=== PATIENT | female | born 1985 | race Caucasian/White ===

== ENCOUNTER 2018-10-16 12:58 | Emergency (ER) | payer BC ==
[~2018-10-16] VITALS: Ht 182.9 cm; Wt 104.3 kg
[~2018-10-16 12:58] MED LIST: [UNRECOGNIZED DRUG - OTHER]; [UNRECOGNIZED DRUG - OTHER]
[2018-10-16] MEDS ORDERED: NS IV 1000 ML 1,000 ML IV SCH (13:30)
[2018-10-16 13:38] LABS: BASOPHILS % (AUTO) 1 % (0-10); EOSINOPHILS # (AUTO) 0.2 10^3/uL (0.0-0.3); EOSINOPHILS % (AUTO) 4 % (0-10); HEMATOCRIT 40 % (35-52); HEMOGLOBIN 13.4 G/DL (11.5-16.0); LYMPHOCYTES # (AUTO) 1.9 X 10^3 (1.0-4.0); LYMPHOCYTES % (AUTO) 30 % (12-44); MEAN CORPUSCULAR HEMOGLOBIN 29 PG (25-34); MEAN CORPUSCULAR HGB CONC 34 G/DL (32-36); MEAN CORPUSCULAR VOLUME 86 FL (80-99); MONOCYTES # (AUTO) 0.5 X 10^3 (0.0-1.0); MONOCYTES % (AUTO) 7 % (0-12); NEUTROPHILS # (AUTO) 3.7 X 10^3 (1.8-7.8); NEUTROPHILS % (AUTO) 59 % (42-75); PLATELET COUNT 248 10^3/uL (130-400); RED CELL DISTRIBUTION WIDTH 15.2 % (10.0-14.5); WHITE BLOOD COUNT 6.3 10^3/uL (4.3-11.0)
--- NOTE | 2018-10-16 13:42 | ED Syncope ---
General Chief Complaint: Dizziness/Syncope Stated Complaint: LOSS OF CONSCIOUSNESS Nursing Triage Note: Pt to ED with coworker. Pt reports "loss of consciousness" while eating lunch today. Pt reports being in an abnormally hot room while eating. Pt took a drink of a carbonated beverage, felt a large air bubble and then reports not remembering anything for the next 10-15 seconds. Pt reports feeling well now, but reports feeling tired and uncertain. Source of Information: Patient Exam Limitations: No Limitations History of Present Illness Date Seen by Provider: October 16, 2018 Time Seen by Provider: 13:25 Initial Comments 32-year-old female who was brought to the emergency room by a coworker with reports of her passing out while eating lunch today. She reports that they were eating in and abnormally hot room when she took a drink of her carbonated beverage and just slumped down to the chair. She is alert and oriented on arrival to the emergency room and has no complaints. Bystanders report that she did not sees or having a period of postictal. She denies ever having anything like this before. Timing/Prior Episodes: No Prior History Symptoms Prior to Episode: None Loss of Consciousness: Brief (Seconds) (15 seconds) Current Symptoms: Back to Normal Allergies and Home Medications Allergies Coded Allergies: No Known Drug Allergies (Unverified , 10/02/11) Patient Home Medication List Home Medication List Reviewed: Yes Review of Systems Constitutional: see HPI; No chills, No fever Cardiovascular: syncope All Other Systems Reviewed Negative Unless Noted: Yes Past Hrdamod-Gqupco-Gnybuq Hx Past Med/Social Hx: Reviewed Nursing Past Med/Soc Hx Patient Social History Recent Foreign Travel: No Contact w/Someone Who Travel: No Recent Infectious Disease Expo: No Recent Hopitalizations: Yes (had baby 06/21) Physical Abuse: No Sexual Abuse: No Mistreated: No Fear: No Seasonal Allergies Seasonal Allergies: No Past Medical History Surgeries: No Respiratory: No Cardiac: No Neurological: No Genitourinary: No Gastrointestinal: No Musculoskeletal: No Endocrine: No HEENT: No Cancer: No Psychosocial: No Integumentary: No Blood Disorders: No Adverse Reaction/Blood Tranf: No Family Medical History Reviewed Nursing Family Hx Physical Exam Vital Signs Vital Signs - First Documented 10/16/18 13:13 Temp 97.3 Pulse 66 Resp 16 B/P (MAP) 109/95 (100) Pulse Ox 99 O2 Delivery Room Air Capillary Refill : Less Than 3 Seconds Height, Weight, BMI Height: 6'0" Weight: 230lbs. oz. 104.391423kh; BMI Method:Stated General Appearance: No Apparent Distress, WD/WN HEENT: PERRL/EOMI, TMs Normal, Normal ENT Inspection, Pharynx Normal Neck: Full Range of Motion, Normal Inspection, Non Tender, Supple Cardiovascular: Regular Rate, Rhythm, No Edema, No Gallop, No JVD, No Murmur, Normal Peripheral Pulses Respiratory: Chest Non Tender, Lungs Clear, Normal Breath Sounds, No Accessory Muscle Use, No Respiratory Distress Gastrointestinal: Normal Bowel Sounds, No Organomegaly, No Pulsatile Mass, Non Tender, Soft Extremities: Normal Capillary Refill Neurologic/Psychiatric: Alert, Oriented x3, No Motor/Sensory Deficits Cranial Nerves: Normal Hearing, Normal Speech, PERRL Coordination/Gait: Normal Finger to Nose, Normal Gait Skin: Normal Color, Warm/Dry Progress/Results/Core Measures Results/Orders Lab Results Laboratory Tests Test 10/16/18 13:29 10/16/18 13:33 Range/Units White Blood Count 6.3 4.3-11.0 10^3/uL Red Blood Count 4.57 4.35-5.85 10^6/uL Hemoglobin 13.4 11.5-16.0 G/DL Hematocrit 40 35-52 % Mean Corpuscular Volume 86 80-99 FL Mean Corpuscular Hemoglobin 29 25-34 PG Mean Corpuscular Hemoglobin Concent 34 32-36 G/DL Red Cell Distribution Width 15.2 H 10.0-14.5 % Platelet Count 248 130-400 10^3/uL Mean Platelet Volume 10.0 7.4-10.4 FL Neutrophils (%) (Auto) 59 42-75 % Lymphocytes (%) (Auto) 30 12-44 % Monocytes (%) (Auto) 7 0-12 % Eosinophils (%) (Auto) 4 0-10 % Basophils (%) (Auto) 1 0-10 % Neutrophils # (Auto) 3.7 1.8-7.8 X 10^3 Lymphocytes # (Auto) 1.9 1.0-4.0 X 10^3 Monocytes # (Auto) 0.5 0.0-1.0 X 10^3 Eosinophils # (Auto) 0.2 0.0-0.3 10^3/uL Basophils # (Auto) 0.0 0.0-0.1 10^3/uL Sodium Level 141 135-145 MMOL/L Potassium Level 4.0 3.6-5.0 MMOL/L Chloride Level 107 98-107 MMOL/L Carbon Dioxide Level 23 21-32 MMOL/L Anion Gap 11 5-14 MMOL/L Blood Urea Nitrogen 17 7-18 MG/DL Creatinine 0.85 0.60-1.30 MG/DL Estimat Glomerular Filtration Rate > 60 BUN/Creatinine Ratio 20 Glucose Level 118 H 70-105 MG/DL Calcium Level 10.1 8.5-10.1 MG/DL Corrected Calcium 8.5-10.1 MG/DL Total Bilirubin 0.3 0.1-1.0 MG/DL Aspartate Amino Transf (AST/SGOT) 16 5-34 U/L Alanine Aminotransferase (ALT/SGPT) 19 0-55 U/L Alkaline Phosphatase 67 40-136 U/L Total Protein 8.0 6.4-8.2 GM/DL Albumin 4.8 H 3.2-4.5 GM/DL Serum Test, Qualitative NEGATIVE NEGATIVE Urine Color YELLOW Urine Clarity CLEAR Urine pH 6.5 5-9 Urine Specific [place] 1.010 L 1.016-1.022 Urine Protein NEGATIVE NEGATIVE Urine Glucose (UA) NEGATIVE NEGATIVE Urine Ketones NEGATIVE NEGATIVE Urine Nitrite NEGATIVE NEGATIVE Urine Bilirubin NEGATIVE NEGATIVE Urine Urobilinogen NORMAL NORMAL MG/DL Urine Leukocyte Esterase NEGATIVE NEGATIVE Urine RBC (Auto) NEGATIVE NEGATIVE Urine RBC NONE /HPF Urine WBC NONE /HPF Urine Squamous Epithelial Cells 0-2 /HPF Urine Crystals NONE /LPF Urine Bacteria NEGATIVE /HPF Urine Casts NONE /LPF Urine Mucus NEGATIVE /LPF Urine Culture Indicated NO My Orders Orders - ALYCIA SALAZAR Comprehensive Metabolic Panel (10/16/18 13:25) Ua Culture If Indicated (10/16/18 13:25) Hcg,Qualitative Serum (10/16/18 13:25) Ed Iv/Invasive Line Start (10/16/18 13:25) Cbc With Automated Diff (10/16/18 13:25) Ekg Tracing (10/16/18 13:25) Ns Iv 1000 Ml (Sodium Chloride 0.9%) (10/16/18 13:30) Vital Signs/I&O 10/16/18 10/16/18 13:13 14:33 Temp 97.3 97.6 Pulse 66 62 Resp 16 18 B/P (MAP) 109/95 (100) 105/53 (70) Pulse Ox 99 99 O2 Delivery Room Air Room Air Blood Pressure Mean: 100 Progress Progress Note : Time: 14:00 Progress Note I have seen and evaluated the patient. I have informed her of her laboratory studies. Her EKG revealed no cardiac abnormalities. She has remained symptom free since arrival to the emergency room. She agrees with plan of care, plans for discharge, return precautions were given. Departure Impression Primary Impression: Syncopal episodes Disposition: 01 HOME, SELF-CARE Condition: Stable/Unchanged Departure-Patient Inst. Decision time for Depature: 14:08 Referrals: LARRY SOLARES DO (PCP/Family) Primary Care Physician Patient Instructions: Syncope (Fainting) (DC) Add. Discharge Instructions: Drink plenty fluids to stay hydrated throughout the day. Follow-up with your primary care provider as needed. Return back to the emergency room for worsening symptoms or concerns as needed. All discharge instructions reviewed with patient and/or family. Voiced understanding. ALYCIA SALAZAR October 16, 2018 13:42
[2018-10-16 13:43] LABS: BILIRUBIN,URINE NEGATIVE (NEGATIVE); CLARITY,URINE CLEAR; COLOR,URINE YELLOW; GLUCOSE, URINE (UA) NEGATIVE (NEGATIVE); KETONES,URINE NEGATIVE (NEGATIVE); LEUKOCYTE ESTERASE ,URINE NEGATIVE (NEGATIVE); NITRITE,URINE NEGATIVE (NEGATIVE); PH,URINE 6.5 (5-9); PROTEIN,URINE NEGATIVE (NEGATIVE); UROBILINOGEN,URINE NORMAL (NORMAL)
[2018-10-16 13:59] LABS: ALANINE AMINOTRANSFERASE 19 U/L (0-55); ALBUMIN 4.8 GM/DL (3.2-4.5); ALKALINE PHOSPHATASE 67 U/L (40-136); BILIRUBIN,TOTAL 0.3 MG/DL (0.1-1.0); BUN/CREATININE RATIO 20; CALCIUM 10.1 MG/DL (8.5-10.1); CARBON DIOXIDE 23 MMOL/L (21-32); CHLORIDE 107 MMOL/L (98-107); CREATININE SERUM 0.85 MG/DL (0.60-1.30); GFR ESTIMATED > 60; GLUCOSE 118 MG/DL (70-105); SODIUM 141 MMOL/L (135-145)
[2018-10-16 14:03] LABS: BACTERIA,URINE NEGATIVE /HPF; SQUAMOUS EPITHELIAL CELL,UR 0-2 /HPF
[2018-10-16 14:33] VITALS: BP 105/53
== END 2018-10-16 14:30 | disposition home or self-care (01) ==
LOC: EDUNIT# 12:58 → ER 12:59
DX: R55 Syncope and collapse (principal)
CPT/HCPCS: 36415; 80053; 81000; 84703; 85025

== ENCOUNTER → 2020-04-19 | Outpatient (CLI) | payer BC ==
[2020-04-19 08:18] LABS: BASOPHILS % (AUTO) 1 % (0-10); EOSINOPHILS % (AUTO) 1 % (0-10); HEMATOCRIT 42 % (35-52); HEMOGLOBIN 13.8 g/dL (11.5-16.0); LYMPHOCYTES # (AUTO) 1.3 10^3/uL (1.0-4.0); LYMPHOCYTES % (AUTO) 35 % (12-44); MEAN CORPUSCULAR HEMOGLOBIN 30 pg (25-34); MEAN CORPUSCULAR HGB CONC 33 g/dL (32-36); MEAN CORPUSCULAR VOLUME 91 fL (80-99); MEAN PLATELET VOLUME 10.2 fL (9.0-12.2); MONOCYTES # (AUTO) 0.3 10^3/uL (0.0-1.0); MONOCYTES % (AUTO) 9 % (0-12); NEUTROPHILS # (AUTO) 1.9 10^3/uL (1.8-7.8); NEUTROPHILS % (AUTO) 54 % (42-75); PLATELET COUNT 146 10^3/uL (130-400); WHITE BLOOD COUNT 3.6 10^3/uL (4.3-11.0)
[2020-04-19 08:31] LABS: ALBUMIN 4.5 GM/DL (3.2-4.5); POTASSIUM 3.6 MMOL/L (3.6-5.0)
[2020-04-19 08:32] LABS: CALCIUM 8.6 MG/DL (8.5-10.1)
[2020-04-19 08:34] LABS: TOTAL PROTEIN 7.9 GM/DL (6.4-8.2)
[2020-04-19 08:35] LABS: BILIRUBIN,TOTAL 0.8 MG/DL (0.1-1.0)
[2020-04-19 08:37] LABS: CREATININE SERUM 1.07 MG/DL (0.60-1.30)
--- NOTE | 2020-04-19 18:52 | NUR ---
NOtified of positive COVID test.
== END ==
LOC: LABNPT 05:45
PROVIDERS: ATTEND Internal Medicine
DX: U07.1 COVID-19 (principal)
CPT/HCPCS: 80053; 85025; 86141; U0002; 87635

== ENCOUNTER → 2020-05-06 | Outpatient (CLI) | payer BC ==
--- NOTE | 2020-05-06 11:17 | Diagnostic Imaging Report ---
INDICATION: WORSENING COUGH, COVID+ TEST ON 04/19/20. TECHNIQUE: Two view chest 10:47 AM CORRELATION STUDY: 10/02/2011 FINDINGS: The heart size, mediastinal configuration and pulmonary vasculature are within normal limits. The lungs are clear with no consolidating infiltrate. There is no significant pleural effusion or pneumothorax. Visualized osseous structures are unremarkable. IMPRESSION: 1. Negative for acute abnormality of the chest. Dictated by: Dictated on workstation # [id number]
== END ==
LOC: RAD 10:15
PROVIDERS: ATTEND Physician Assistant
DX: U07.1 COVID-19 (principal)
CPT/HCPCS: 71046

== ENCOUNTER → 2020-08-10 | Outpatient (CLI) | payer BC ==
--- NOTE | 2020-08-10 17:10 | Diagnostic Imaging Report ---
INDICATION: Back pain. COMPARISON: CT abdomen and pelvis dated 01/18/2015. EXAMINATION: Frontal and lateral radiographic views of the lumbar spine were obtained. FINDINGS: Static alignment is preserved. Vertebral body heights are maintained. There is no acute fracture. There is mild intervertebral disc height loss isolated at the L4-L5 level. Note is also made of mild multilevel facet arthropathy of the lower lumbar spine. Included small bowel loops are nondistended. Note is made of multiple gallstones and indwelling intrauterine contraceptive device. IMPRESSION: 1. Mild degenerative changes of the lower lumbar spine, as described above. May want to consider correlation with MRI. 2. No acute fracture or dislocation. 3. Cholelithiasis. Dictated by: Dictated on workstation # [id number]
== END ==
LOC: RAD 15:13
PROVIDERS: ATTEND Physician Assistant
DX: M47.816 Spondylosis without myelopathy or radiculopathy, lumbar region (principal); K80.20 Calculus of gallbladder without cholecystitis without obstruction; M51.36 Other intervertebral disc degeneration, lumbar region
CPT/HCPCS: 72100

== ENCOUNTER → 2020-08-19 | Outpatient (CLI) | payer BC ==
--- NOTE | 2020-08-19 17:09 | Diagnostic Imaging Report ---
PROCEDURE: MRI lumbar spine. TECHNIQUE: Multiplanar, multisequence MRI of the lumbar spine was performed without contrast. INDICATION: Left leg pain, back pain, and lumbar radiculopathy CORRELATED with plain films lumbar 08/10/2020. No prior MR findings. FINDINGS: The lumbar vertebral statures are stable. The alignment stable and anatomic. Marrow signal intensity unremarkable. Conus appeared normal. No intrathecal abnormality. Abnormalities isolated to the L4-L5 level with is disc stature loss, disc desiccation and a broad-based left paramedian disc protrusion indenting the ventral thecal sac with a moderate severity of canal stenosis as well as [id number] impingement upon the left lateral recess and mild narrowing of the left neural foramen. The right neural foramen also has mild stenosis The L3-L4 disc showed mild stature loss desiccation and mild circumferential annular bulge but no focal herniation and no resultant stenosis. Remaining levels unremarkable. IMPRESSION: 1. Disc protrusion and desiccation L4-L5 with central canal, left lateral recess and left greater than right foraminal stenosis. 2. Normal alignment, no acute bony pathology. Dictated by: Dictated on workstation # [id number]
== END ==
LOC: RAD 15:30
PROVIDERS: ATTEND Physician Assistant
DX: M51.16 Intervertebral disc disorders with radiculopathy, lumbar region (principal); M48.061 Spinal stenosis, lumbar region without neurogenic claudication
CPT/HCPCS: 72148

== ENCOUNTER → 2021-04-20 | Outpatient (CLI) | payer BC ==
--- NOTE | 2021-04-20 09:05 | Diagnostic Imaging Report ---
INDICATION: PAIN RIGHT WRIST and HAND TECHNIQUE: Three views of the right hand. CORRELATION STUDY: None FINDINGS: There is normal alignment and appearance of the osseous structures of the hand. The joint spaces are maintained. There is no acute fracture. Soft tissues are unremarkable. IMPRESSION: 1. Negative for acute bony abnormality of the right hand. Dictated by: Dictated on workstation # [id number]
--- NOTE | 2021-04-20 09:10 | Diagnostic Imaging Report ---
INDICATION: Right wrist pain. FINDINGS: 3 views. There are no fractures or dislocation. Articulating surfaces are smooth. Joint spaces are well maintained. No evidence of osteonecrosis. No fracture. IMPRESSION: Negative right wrist Dictated by: Dictated on workstation # [id number]
== END ==
LOC: RAD 08:29
PROVIDERS: ATTEND Internal Medicine
DX: M25.531 Pain in right wrist (principal); M79.641 Pain in right hand
CPT/HCPCS: 73110; 73130

== ENCOUNTER → 2021-11-01 | Outpatient (CLI) | payer BC, OTHER ==
--- NOTE | 2021-11-01 16:48 | Diagnostic Imaging Report ---
INDICATION: Neck pain. TIME OF EXAM: 3:36 PM. EXAMINATION: AP, lateral and odontoid views of the cervical spine were obtained. Curvature and alignment is normal. Vertebral body heights and disc spaces are well-maintained. The prevertebral tissues are normal. Odontoid appears intact. No fractures are seen. IMPRESSION: No acute bony abnormality is detected. Dictated by: Dictated on workstation # [id number]
== END ==
LOC: RAD 15:12
PROVIDERS: ATTEND Physician Assistant
DX: M54.12 Radiculopathy, cervical region (principal); R94.31 Abnormal electrocardiogram [ECG] [EKG]
CPT/HCPCS: 72040

== ENCOUNTER → 2021-11-14 | Outpatient (CLI) | payer OTHER ==
--- NOTE | 2021-11-14 09:54 | Diagnostic Imaging Report ---
PROCEDURE: MR imaging cervical spine without contrast. TECHNIQUE: Multiplanar, multisequence MR imaging of the cervical spine was performed without contrast. INDICATION: Bilateral hand numbness. Neck pain. COMPARISON: 11/01/2021. FINDINGS: No acute fracture or dislocation is seen in the cervical spine. There is reversal of the normal lordotic curvature of the cervical spine centered at the C4-C5 level. The vertebral body heights and disc spaces are well maintained. The bone marrow signal is unremarkable. No focal osseous lesions. The craniocervical junction is maintained. The cervical spinal cord demonstrates normal intrinsic signal. No epidural collections are seen. The included brainstem and posterior fossa have normal appearance. Degenerative changes are as follows: C2-C3: No significant spinal canal or foraminal stenosis. C3-C4: No significant spinal canal or foraminal stenosis. C4-C5: Posterior disc bulge and uncovertebral arthropathy results in no significant spinal canal narrowing and no significant foraminal narrowing. C5-C6: Posterior disc bulge and uncovertebral arthropathy results in no significant spinal canal narrowing and no significant foraminal narrowing. C6-C7: No significant spinal canal or foraminal stenosis. C7-T1: No significant spinal canal or foraminal stenosis. The soft tissues of neck are unremarkable. IMPRESSION: 1. No acute fracture or dislocation of the cervical spine. 2. Mild multilevel degenerative changes in the cervical spine, greatest at C4-C5 and C5-C6. No significant spinal canal or foraminal stenosis in the cervical spine. Dictated by: Dictated on workstation # [id number]
== END ==
LOC: RAD 08:48
PROVIDERS: ATTEND Physician Assistant
DX: M47.22 Other spondylosis with radiculopathy, cervical region (principal); R94.31 Abnormal electrocardiogram [ECG] [EKG]
CPT/HCPCS: 72141

== ENCOUNTER 2021-12-27 13:33 | Emergency (ER) | payer OTHER ==
[~2021-12-27] VITALS: Ht 182 cm; Wt 104.0 kg
[2021-12-27] MEDS ORDERED: DICYCLOMINE 10 MG/ML (BENTYL) 2 ML AMP IM STA (14:53)
--- NOTE | 2021-12-27 14:55 | ED Abdominal Pain ---
General Chief Complaint: Abdominal/GI Problems Stated Complaint: ABD PAIN,DIZZINESS,NAUSEA Nursing Triage Note: PT COMPLAINS OF EPIGASTRIC PAIN ALONG WITH NAUSEA AND DIARRHEA STARTING THIS AM. Source of Information: Patient Exam Limitations: No Limitations History of Present Illness Date Seen by Provider: Dec 27, 2021 Time Seen by Provider: 14:44 Initial Comments Patient is a 36-year-old female who presents to the emergency department with a chief complaint of epigastric pain nausea and diarrhea onset early this morning. Patient states that the pain comes in "waves". She states it seems to spread from the epigastric region and across her abdomen. She has been very nauseous. No actual vomiting. She denies any sick contacts at home. Her has eaten the same thing she has in recent days and he is not sick. She denies fevers or chills. No cough, shortness of breath, URI symptoms. No COVID concerns. She is scheduled to go out of the country on Saturday to [place] for 7 days. She has never had any abdominal surgeries. She has had several successful pregnancies. She currently has an IUD. No dysuria, urgency or frequency. No black or bloody stools. She does mention on previous evaluation of degenerative disc disease in her back with an MRI that it was noted she had gallstones, multiple in her gallbladder. Patient is having a difficult time quantifying her pain. She does state may be a "6 or 7". But again this is intermittent. She has not taken anything for the pain. All other review of systems reviewed and negative except as stated. Timing/Duration: 4-6 Hours Severity/Quality: Moderate, Aching Location: RUQ, Epigastric Radiation: No Radiation Activities at Onset: Sleeping Associated Symptoms: Nausea/Vomiting (nausea without vomiting), Other (diarrhea) Allergies and Home Medications Allergies Coded Allergies: No Known Drug Allergies (Unverified , 10/02/11) Patient Home Medication List Home Medication List Reviewed: Yes Dicyclomine HCl (Dicyclomine HCl) 20 Mg Tablet, 20 MG PO Q6H PRN for abdominal pain Prescribed by: TERRANCE OLIVA on 12/27/21 163 Ondansetron (Ondansetron Odt) 4 Mg Tab.rapdis, 4 MG PO Q8H PRN for nausea Prescribed by: TERRANCE OLIVA on 12/27/21 1631 [Allgera D] , (Reported) Entered as Reported by: ELIECRE ANGEL on 10/02/11 09 [Vitaman] , (Reported) Entered as Reported by: ELIECER ANGEL on 10/02/1139 Review of Systems Review of Systems Constitutional: see HPI EENTM: No Symptoms Reported Respiratory: No Symptoms Reported Cardiovascular: No Symptoms Reported Gastrointestinal: Abdominal Pain, Diarrhea, Nausea Genitourinary: No Symptoms Reported Musculoskeletal: no symptoms reported Skin: no symptoms reported All Other Systems Reviewed Negative Unless Noted: Yes Past Ptpubea-Rjgeep-Ooqqix Hx Patient Social History Tobacco Use?: No Substance use?: No Alcohol Use?: No Immunizations Up To Date 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 oz. 104.297488kt; 31.00 BMI Method:Stated General Appearance: WD/WN, mild distress HEENT: PERRL/EOMI Respiratory: lungs clear, normal breath sounds, no respiratory distress, no accessory muscle use Cardiovascular: regular rate, rhythm Gastrointestinal: soft, tenderness (epigastric/RUQ (equivocal randhawa's)) Extremities: non-tender, normal inspection, no pedal edema, no calf tenderness Neurologic/Psychiatric: alert, normal mood/affect, oriented x 3 Skin: normal color, warm/dry Progress/Results/Core Measures Results/Orders Lab Results Laboratory Tests Test 12/27/21 14:45 Range/Units White Blood Count 10.1 4.3-11.0 10^3/uL Red Blood Count 4.95 3.80-5.11 10^6/uL Hemoglobin 15.0 11.5-16.0 g/dL Hematocrit 44 35-52 % Mean Corpuscular Volume 89 80-99 fL Mean Corpuscular Hemoglobin 30 25-34 pg Mean Corpuscular Hemoglobin Concent 34 32-36 g/dL Red Cell Distribution Width 12.3 10.0-14.5 % Platelet Count 240 130-400 10^3/uL Mean Platelet Volume 10.2 9.0-12.2 fL Immature Granulocyte % (Auto) 0 % Neutrophils (%) (Auto) 83 H 42-75 % Lymphocytes (%) (Auto) 9 L 12-44 % Monocytes (%) (Auto) 6 0-12 % Eosinophils (%) (Auto) 1 0-10 % Basophils (%) (Auto) 0 0-10 % Neutrophils # (Auto) 8.4 H 1.8-7.8 10^3/uL Lymphocytes # (Auto) 0.9 L 1.0-4.0 10^3/uL Monocytes # (Auto) 0.6 0.0-1.0 10^3/uL Eosinophils # (Auto) 0.1 0.0-0.3 10^3/uL Basophils # (Auto) 0.0 0.0-0.1 10^3/uL Immature Granulocyte # (Auto) 0.0 0.0-0.1 10^3/uL Sodium Level 137 135-145 MMOL/L Potassium Level 4.1 3.6-5.0 MMOL/L Chloride Level 104 98-107 MMOL/L Carbon Dioxide Level 23 21-32 MMOL/L Anion Gap 10 5-14 MMOL/L Blood Urea Nitrogen 10 7-18 MG/DL Creatinine 0.85 0.60-1.30 MG/DL Estimat Glomerular Filtration Rate 91 BUN/Creatinine Ratio 12 Glucose Level 94 70-105 MG/DL Calcium Level 9.5 8.5-10.1 MG/DL Corrected Calcium 9.1 8.5-10.1 MG/DL Total Bilirubin 1.2 H 0.1-1.0 MG/DL Aspartate Amino Transf (AST/SGOT) 19 5-34 U/L Alanine Aminotransferase (ALT/SGPT) 16 0-55 U/L Alkaline Phosphatase 47 40-136 U/L Total Protein 7.8 6.4-8.2 GM/DL Albumin 4.5 3.2-4.5 GM/DL Lipase 25 8-78 U/L Serum Test, Qualitative NEGATIVE NEGATIVE My Orders Orders - TERRANCE OLIVA MD Us Gallbladder [id number] (12/27/21 14:52) Ed Iv/Invasive Line Start (12/27/21 14:52) Cbc With Automated Diff (12/27/21 14:52) Comprehensive Metabolic Panel (12/27/21 14:52) Lipase (12/27/21 14:52) Hcg,Qualitative Serum (12/27/21 14:52) Ns Iv 1000 Ml (Sodium Chloride 0.9%) (12/27/21 15:00) Dicyclomine Injection (Bentyl Injection) (12/27/21 14:53) Fentanyl Inj (Sublimaze Injection) (12/27/21 15:30) Medications Given in ED Vital Signs/I&O 12/27/21 12/27/21 14:07 16:43 Temp 36.7 36.7 Pulse 90 84 Resp 16 16 B/P (MAP) 144/89 (107) 136/88 Pulse Ox 100 100 O2 Delivery Room Air Room Air 12/28/21 00:00 Intake Total 1000 ml Balance 1000 ml Blood Pressure Mean: 107 Progress Progress Note : Time: 16:16 Progress Note Patient has had fluids, fentanyl, Bentyl. I have reviewed her labs, they are reassuring. No elevated white count or abnormalities noted on chemistry. Gallbladder ultrasound shows stones and borderline wall thickness but no discrete evidence of acute cholecystitis. She feels better. I have recommended that she follow-up with a general surgeon for further evaluation of her gallbladder and possible cholecystectomy. I have recommended Zofran for nausea, Bentyl for abdominal cramping and ibuprofen as needed for further pain management. She declines opiate pain medications. I have advised her that if she develops a fever with abdominal pain or intractable nausea and vomiting that she should come back to the emergency room for reevaluation. She is planning an international trip this coming Saturday. I cautioned her about her diet. She verbalized understanding, both she and her are comfortable with plan of care. All questions are sought and answered. Departure Impression Primary Impression: Abdominal pain Qualified Codes: R10.13 - Epigastric pain Additional Impressions: Biliary colic Cholelithiasis Qualified Codes: K80.20 - Calculus of gallbladder without cholecystitis without obstruction Disposition: 01 HOME, SELF-CARE Condition: Improved Departure-Patient Inst. Decision time for Depature: 16:18 Referrals: ALLEN HERNANDEZ MD (PCP/Family) Primary Care Physician Patient Instructions: Gallstones (DC) Add. Discharge Instructions: Drink plenty of fluids to stay well-hydrated. Avoid fatty foods as this will cause the gallbladder to "act up". Take the dicyclomine/Bentyl 1 pill 30 minutes before eating up to 4 times daily. Zofran, 4 mg every 8 hours as needed for nausea. You can also take vuzc-cot-vycsvtl ibuprofen 3 tablets which is 600 mg every 6 hours with food as needed for pain. If you develop a fever, worsening pain or persistent vomiting please come back for reevaluation. Contact your doctor first thing tomorrow for referral to have your gallbladder possibly removed. Scripts Dicyclomine HCl (Dicyclomine HCl) 20 Mg Tablet 20 MG PO Q6H PRN for abdominal pain, #60 TAB take 30 minutes before eating Prov: TERRANCE OLIVA MD 12/27/21 Ondansetron (Ondansetron Odt) 4 Mg Tab.rapdis 4 MG PO Q8H PRN for nausea, #20 TAB Prov: TERRANCE OLIVA MD 12/27/21 Work/School Note: Work Release Form Date Seen in the Emergency Department: Dec 27, 2021 Return to Work: Dec 28, 2021 TERRANCE OLIVA MD Dec 27, 2021 14:55
[2021-12-27 14:58] LABS: BASOPHILS % (AUTO) 0 % (0-10); EOSINOPHILS # (AUTO) 0.1 10^3/uL (0.0-0.3); EOSINOPHILS % (AUTO) 1 % (0-10); HEMATOCRIT 44 % (35-52); LYMPHOCYTES # (AUTO) 0.9 10^3/uL (1.0-4.0); LYMPHOCYTES % (AUTO) 9 % (12-44); MEAN CORPUSCULAR HEMOGLOBIN 30 pg (25-34); MEAN CORPUSCULAR HGB CONC 34 g/dL (32-36); MEAN CORPUSCULAR VOLUME 89 fL (80-99); MEAN PLATELET VOLUME 10.2 fL (9.0-12.2); MONOCYTES # (AUTO) 0.6 10^3/uL (0.0-1.0); MONOCYTES % (AUTO) 6 % (0-12); NEUTROPHILS # (AUTO) 8.4 10^3/uL (1.8-7.8); NEUTROPHILS % (AUTO) 83 % (42-75); PLATELET COUNT 240 10^3/uL (130-400); WHITE BLOOD COUNT 10.1 10^3/uL (4.3-11.0)
[2021-12-27] MEDS ORDERED: NS IV 1000 ML 1,000 ML IV SCH (15:00)
[2021-12-27 15:06] LABS: ALBUMIN 4.5 GM/DL (3.2-4.5); POTASSIUM 4.1 MMOL/L (3.6-5.0)
[2021-12-27 15:07] LABS: CALCIUM 9.5 MG/DL (8.5-10.1)
[2021-12-27 15:08] LABS: TOTAL PROTEIN 7.8 GM/DL (6.4-8.2)
[2021-12-27 15:10] LABS: BILIRUBIN,TOTAL 1.2 MG/DL (0.1-1.0)
[2021-12-27 15:12] LABS: CREATININE SERUM 0.85 MG/DL (0.60-1.30)
[2021-12-27] MEDS ORDERED: fentaNYL INJ 100 MCG/2 ML AMP IVP ONE (15:30)
--- NOTE | 2021-12-27 15:51 | Diagnostic Imaging Report ---
PROCEDURE: US Gallbladder. INDICATION: RUQ abdominal pain (severe) TECHNIQUE: Multiple grayscale sonographic images were obtained of the right upper quadrant of the abdomen. CORRELATION STUDY: None. FINDINGS: LIVER: Liver length at 17.1 cm. No focal lesion. The main portal vein is patent and with normal direction of flow. GALLBLADDER: Multiple shadowing mobile gallstones are present. Borderline gallbladder wall thickening at 0.3 cm. COMMON BILE DUCT: Borderline at 0.6 cm. AORTA/IVC: Obscured by overlying bowel gas. PANCREAS: Obscured by overlying bowel gas. RIGHT KIDNEY: 12.3 x 4.2 x 5.1 cm. No hydronephrosis. OTHER: Sonographic Barnard's sign, negative. No right upper quadrant ascites. IMPRESSION: 1. Cholelithiasis. Borderline gallbladder wall thickening. Borderline dilatation of the common bile duct. However, no additional ultrasound findings to suggest acute cholecystitis at this time. Dictated by: Dictated on workstation # [id number]
[2021-12-27] MEDS ORDERED: DICY20TA PO (16:31)
[2021-12-27] MEDS ORDERED: ONDA4TAB11 PO (16:31)
[2021-12-27 16:43] VITALS: BP 136/88
== END 2021-12-27 16:47 | disposition home or self-care (01) ==
LOC: EDUNIT# 13:33 → ER 13:34
DX: K80.70 Calculus of gallbladder and bile duct without cholecystitis without obstruction (principal); Z32.02 Encounter for pregnancy test, result negative
CPT/HCPCS: 36415; 76705; 80053; 83690; 84703; 85025

== ENCOUNTER → 2022-01-03 | Outpatient (CLI) | payer OTHER ==
[~2022-01-03] VITALS: Ht 182 cm; Wt 104.0 kg
[~2022-01-03] MED LIST changes: +DICY20TA PO; +LIOT25TA11 PO; +LISD60CA PO; +ONDA4TAB11 PO; +PROG100C11 PO; +SERT-414 PO
== END ==
LOC: PREOP 05:34
PROVIDERS: ATTEND Surgery
DX: Z01.818 Encounter for other preprocedural examination (principal); K80.20 Calculus of gallbladder without cholecystitis without obstruction